=== PATIENT | male | born 1975 | race Caucasian/White ===

== ENCOUNTER 2018-03-13 16:21 | Emergency (ER) | payer BC | END 2018-03-13 20:02 | disposition home or self-care (01) | LOC: FER 16:21 | CPT/HCPCS: 36415; 71275-TC; 74160-TC; 80053; 81003; 82550; 84484; 85025; 93005; 99283-25 ==

== ENCOUNTER 2021-10-10 10:58 | Emergency (ER) | payer BC ==
[2021-10-10 11:10] VITALS: BP 158/99; PULSE 64; TEMP 97.7; BMI 28.7
[2021-10-10] MEDS ORDERED: KETOROLAC TROMETHAMINE 60 MG/2 ML VIAL IM ONE (11:14)
[2021-10-10] MEDS ORDERED: KETOROLAC TROMETHAMINE 60 MG/2 ML VIAL ONE (11:18)
== END 2021-10-10 12:43 | disposition home or self-care (01) ==
LOC: FER 10:58
PROC: 3E0233Z Introduction of Anti-inflammatory into Muscle, Percutaneous Approach (ICD-10-PCS; principal; 2021-10-10)
DX: M76.62 Achilles tendinitis, left leg (principal); X50.3XXA Overexertion from repetitive movements, initial encounter; Y93.02 Activity, running
CPT/HCPCS: 73610-TC-LT-FY; 73630-TC-LT; 99284-25